=== PATIENT | male | born 1940 | race Caucasian/White ===

== ENCOUNTER 2018-03-27 15:24 | Emergency (ER) | payer MEDICARE, OTHER ==
[~2018-03-27] VITALS: Ht 170.2 cm; Wt 71.7 kg
[~2018-03-27 15:24] MED LIST: ALPR0.254 PO; ATEN-60 PO; CITA20TA3 PO; LIDO5DIS21 TOP; MORP15TA PO; MORP30TA PO; MORP60TA25 PO; ROPI0.5T PO; SIMV80TA73 PO; TIZA2TAB3 PO
[2018-03-27 16:01] VITALS: BP 156/70
== END 2018-03-27 20:50 | disposition home or self-care (01) ==
LOC: ER 15:28
DX: M54.2 Cervicalgia (principal); G72.89 Other specified myopathies; F17.210 Nicotine dependence, cigarettes, uncomplicated; M19.90 Unspecified osteoarthritis, unspecified site; E11.9 Type 2 diabetes mellitus without complications; E78.5 Hyperlipidemia, unspecified; I10 Essential (primary) hypertension; Z79.899 Other long term (current) drug therapy; Z88.0 Allergy status to penicillin
CPT/HCPCS: 72125

== ENCOUNTER 2019-12-02 14:05 | Emergency (ER) | payer MEDICARE, OTHER ==
[~2019-12-02] VITALS: Ht 170.2 cm; Wt 79.4 kg
[~2019-12-02 14:05] MED LIST changes: +MORP1TAB14 PO; -MORP60TA25 PO; -ROPI0.5T PO; +ROPI0.5T16 PO
[2019-12-02 14:19] VITALS: BP 127/67
[2019-12-02 14:40] LABS: Basophils # (auto) 0.1 10 ^3/uL (0-0.2); Basophils % (auto) 1.3 % (0.0-2.0); Eosinophils # (auto) 0.4 10 ^3/uL (0-0.8); Eosinophils % (auto) 4.6 % (0.0-7.0); Hematocrit 49.9 % (41.0-53.0); Hemoglobin 16.2 g/dL (13.5-17.5); Lymphocytes # (auto) 1.1 10 ^3/uL (0.4-5.4); Lymphocytes % (auto) 12.4 % (10.0-50.0); Mean Corpuscular Hemoglobin 28.9 pg (28.0-32.0); Mean Corpuscular Hgb Conc. 32.5 g/dL (32.0-36.0); Mean Corpuscular Volume 89.1 fL (80.0-100.0); Monocytes # (auto) 0.9 10 ^3/uL (0-1.3); Monocytes % (auto) 10.2 % (0.0-12.0); Neutrophils # (auto) 6.1 10 ^3/uL (1.6-8.6); Neutrophils % (auto) 71.5 % (37.0-80.0); Nucleated Red Blood Cells % 0.1 %; Platelet Count (auto) 217 10^3/uL (140-450); White Blood Cell 8.5 10^3/uL (4.4-10.8)
[2019-12-02 14:50] LABS: Red Cell Distribution Width 28.7 % (11.8-14.3)
[2019-12-02 14:54] LABS: INR 0.95 (0.9-1.15); Partial Thromboplastin Time 25.4 sec (23.64-32.05)
[2019-12-02 14:59] LABS: Urine Bacteria NONE SEEN /hpf (None Seen); Urine Blood 3+ /uL (Negative); Urine Mucus FEW (None Seen); Urine Specific Gravity 1.011 (1.001-1.035); Urine WBC 135 /hpf (0 - 3)
== END 2019-12-02 16:04 | disposition home or self-care (01) ==
LOC: ER 14:05
DX: N39.0 Urinary tract infection, site not specified (principal); F17.210 Nicotine dependence, cigarettes, uncomplicated; E11.9 Type 2 diabetes mellitus without complications; Z88.0 Allergy status to penicillin; Z79.891 Long term (current) use of opiate analgesic; Z79.899 Other long term (current) drug therapy
CPT/HCPCS: 36415; 81001; 85025; 85610; 85730

== ENCOUNTER 2020-05-13 12:17 | Emergency (ER) | payer MEDICARE, OTHER ==
[~2020-05-13] VITALS: Ht 170.2 cm; Wt 81.6 kg
[2020-05-13 12:36] VITALS: BP 156/75
[2020-05-13 13:01] LABS: Basophils # (auto) 0.1 10 ^3/uL (0-0.2); Basophils % (auto) 1.2 % (0.0-2.0); Eosinophils # (auto) 0.5 10 ^3/uL (0-0.8); Eosinophils % (auto) 6.7 % (0.0-7.0); Hematocrit 43.1 % (41.0-53.0); Hemoglobin 14.2 g/dL (13.5-17.5); Lymphocytes # (auto) 0.8 10 ^3/uL (0.4-5.4); Lymphocytes % (auto) 11.3 % (10.0-50.0); Mean Corpuscular Hemoglobin 30.2 pg (28.0-32.0); Mean Corpuscular Hgb Conc. 32.9 g/dL (32.0-36.0); Mean Corpuscular Volume 91.9 fL (80.0-100.0); Monocytes # (auto) 0.7 10 ^3/uL (0-1.3); Monocytes % (auto) 9.3 % (0.0-12.0); Neutrophils # (auto) 5.2 10 ^3/uL (1.6-8.6); Neutrophils % (auto) 71.5 % (37.0-80.0); Nucleated Red Blood Cells % 0.1 %; Platelet Count (auto) 259 10^3/uL (140-450); Red Blood Cells 4.68 10^6/uL (4.5-5.90); Red Cell Distribution Width 16.7 % (11.8-14.3); White Blood Cell 7.2 10^3/uL (4.4-10.8)
[2020-05-13 13:17] LABS: Urine Amorphous Crystal FEW /hpf (None Seen); Urine Bacteria NONE SEEN /hpf (None Seen); Urine Blood 3+ /uL (Negative); Urine Budding Yeast OCCASIONAL /hpf (None Seen); Urine Specific Gravity 1.027 (1.001-1.035); Urine WBC 21 /hpf (0 - 3)
[2020-05-13 13:20] LABS: Albumin 3.9 g/dL (3.4-5.0); BUN/Creatinine Ratio 12.9; Calcium 8.6 mg/dL (8.5-10.1); Potassium 4.3 mmol/L (3.5-5.1)
[2020-05-13 13:22] LABS: Bilirubin, Total 0.4 mg/dL (0.2-1.0); Total Protein 7.2 g/dL (6.4-8.2)
[2020-05-13 13:29] LABS: INR 0.97 (0.9-1.15); Partial Thromboplastin Time 25.6 sec (23.0-31.2)
== END 2020-05-13 14:32 | disposition left against medical advice (07) ==
LOC: ER 12:17
DX: N20.0 Calculus of kidney (principal); N39.0 Urinary tract infection, site not specified; N28.1 Cyst of kidney, acquired; K76.89 Other specified diseases of liver; F17.210 Nicotine dependence, cigarettes, uncomplicated; E11.9 Type 2 diabetes mellitus without complications; Z88.0 Allergy status to penicillin
CPT/HCPCS: 36415; 74176; 80053; 81001; 85025; 85610; 85730; 87086

== ENCOUNTER 2022-03-07 10:01 | Emergency (ER) | payer MEDICARE, OTHER ==
[~2022-03-07] VITALS: Ht 167.6 cm; Wt 78.7 kg
[~2022-03-07 10:01] MED LIST changes: -TIZA2TAB3 PO; +TIZA2TAB4 PO
[2022-03-07 10:58] VITALS: BP 156/56
[2022-03-07] MEDS ORDERED: ACE3T PO (11:04)
== END 2022-03-07 11:33 | disposition home or self-care (01) ==
LOC: ER 10:01
DX: S46.912A Strain of unspecified muscle, fascia and tendon at shoulder and upper arm level, left arm, initial encounter (principal); F17.210 Nicotine dependence, cigarettes, uncomplicated; M19.90 Unspecified osteoarthritis, unspecified site; E11.9 Type 2 diabetes mellitus without complications; Z79.899 Other long term (current) drug therapy; Z88.0 Allergy status to penicillin; W18.39XA Other fall on same level, initial encounter; Y93.01 Activity, walking, marching and hiking; Y92.89 Other specified places as the place of occurrence of the external cause; Y99.8 Other external cause status
CPT/HCPCS: 73030